=== PATIENT | female | born 1995 | race Caucasian/White ===

== ENCOUNTER 2020-03-25 15:28 | Inpatient (IN) | payer OTHER, SELFPAY ==
[~2020-03-25] VITALS: Ht 152.4 cm; Wt 38.6 kg
[2020-03-25] VITALS (7 sets, daily range): BP systolic 89–114
--- NOTE | 2020-03-25 15:28 | NUR ---
BROUGHT IN BY [facility], PLACED IN BED #1 AND TRIAGED. REPORT GIVEN TO ADRIANA
--- NOTE | 2020-03-25 15:55 | NUR ---
CONNECT PT TO VENT AT THIS TIME VIA SETTINGS PRVC 16. VT 400, PEEP 6, 25%FIO2 PROVIDED BY TRANSPORT TEAM.
[2020-03-25] MEDS ORDERED: VANCOMYCIN HCL 1,000 MG in NS 250 ML IV ONE (16:00)
[2020-03-25] MEDS ORDERED: cefTRIAXone 1 GM in D5W 50 ML IV ONE (16:00)
[2020-03-25] MEDS ORDERED: NACL 0.9% 1,000 ML IV ONE (16:15)
--- NOTE | 2020-03-25 16:20 | NUR ---
SPUTUM COLLECTION DONE BY Mariya AND SENT TO LAB
--- NOTE | 2020-03-25 16:35 | NUR ---
IVF INITIATED AT 75 ML PER HR THRU PICC PORT IN RIGHT UPPER ARM. VENT ALARMING. ENCOURAGED PT TO BREATHE AND PT OPENS HER EYES TO COMMAND.
[2020-03-25] MEDS ORDERED: SODIUM CL 3% FOR INHALATION 15 ML VIAL.NEB INH ONE (16:45)
--- NOTE | 2020-03-25 16:45 | NUR ---
ULTRA SOUND OF THE RIGHT BREAST IN PROGRESS.
[2020-03-25 17:12] LABS: HEMATOCRIT 37.8 % (36-48); HEMOGLOBIN 12.5 g/dL (12.0-16.0); MEAN CORPUSCULAR HEMOGLOBIN 31 pg (27-31); MEAN CORPUSCULAR HGB CONC 33 % (32-36); MEAN CORPUSCULAR VOLUME 94 fL (79.0-98.0); PLATELET COUNT (AUTO) 288 K/uL (130-430); RED BLOOD CELL COUNT(AUTO) 4.02 MIL/uL (4.2-6.2); RED CELL DISTRIBUTION WIDTH 14.5 % (9.0-15.0); WHITE BLOOD COUNT (AUTO) 25.1 K/uL (4.8-10.8)
[2020-03-25 17:33] LABS: CALCIUM 8.9 mg/dL (8.4-11.0); CREATININE 1.19 mg/dL (0.55-1.30); POTASSIUM 3.6 mmol/L (3.5-5.1)
[2020-03-25 17:39] LABS: ALBUMIN 2.7 g/dL (3.4-4.8); TOTAL BILIRUBIN 1.4 mg/dL (0.0-1.0)
--- NOTE | 2020-03-25 18:00 | NUR ---
CALLED R.T. FOR ASSISTANCE, PATIENT TO BE TRANSPORTED TO CT SCAN DEPT, PT TRACHED TO VENTILATOR.
[2020-03-25 18:12] LABS: ATYPICAL LYMPHOCYTES % 0 % (0-0); BAND % (MANUAL) 10 % (0-6); BASOPHILS % (MANUAL) 0 % (0-2); EOSINOPHILS % (MANUAL) 0 % (0-7); LYMPHOCYTES % (MANUAL) 6 % (20-46); MONOCYTES % (MANUAL) 4 % (0-11)
[2020-03-25] MEDS ORDERED: NOREPINEPHRINE BITARTRATE 32 MG in NS 218 ML IV PRN (18:15)
[2020-03-25] MEDS ORDERED: NOREPINEPHRINE BITARTRATE 4 MG in NS 246 ML IV ONE ×2 (19:00)
[2020-03-25] MEDS ORDERED: HYDROCORTISONE SOD SUCC 100 MG/2 ML VIAL IVP ONE (19:00)
--- NOTE | 2020-03-25 19:15 | NUR ---
Received report from MELO Berger.
--- NOTE | 2020-03-25 19:26 | NUR ---
Swabs Covid-19 and MRSA and send to lab.
--- NOTE | 2020-03-25 20:03 | NUR ---
BP 98/58- Hold Levophed IV
[2020-03-25] MEDS ORDERED: ALBUTEROL SULFATE 0.083% 2.5 MG/3 ML VIAL.NEB INH PRN (20:15)
[2020-03-25] MEDS ORDERED: NACL 0.9% 1,500 ML IV ONE (20:15)
[2020-03-25] MEDS: PIPERACILLIN/TAZO 3.375/DEX-IS 50 ML IV SCH ×2 (20:15→23:00)
[2020-03-25] MEDS ORDERED: IPRATROPIUM BROM 0.5 MG/2.5 ML VIAL.NEB (ATROVENT) INH PRN (20:15)
--- NOTE | 2020-03-25 20:20 | NUR ---
Dr. Andrzej bernstein for patient's needs. Addendum: 03/25/20 at 2230 by Zaynab Inman RN wrong time
[2020-03-25] MEDS ORDERED: VANCOMYCIN HCL 500 MG in NS 100 ML IV ONE (20:30)
--- NOTE | 2020-03-25 20:38 | NUR ---
Patient had redness over facial , hot, Dr. Lockhart notified.
--- NOTE | 2020-03-25 20:40 | NUR ---
After finished IV Vancomycin, patient had hot, redness, sweat . Possible allergy. order to stop Vancomycin medication.
[2020-03-25] MEDS ORDERED: DIPHENHYDRAMINE INJ 50 MG/ML VIAL ONE (20:44)
--- NOTE | 2020-03-25 20:49 | NUR ---
Given Bendyl 25 mg IV stat as Verbal order by Dr. Lockhart.
[2020-03-25] MEDS ORDERED: DIPHENHYDRAMINE INJ 50 MG/ML VIAL IVP ONE (21:00)
[2020-03-25] MEDS ORDERED: HYDROCORTISONE SOD SUCC 100 MG/2 ML VIAL ONE (21:04)
--- NOTE | 2020-03-25 21:21 | NUR ---
Patient will be admitted to care of Dr. Donnelly. Admitted to unit ICU . Will go to room ICU 4. Belongings list completed. Complete and up to date summary report printed. SBAR report to be given at bedside with opportunity for questions.
[2020-03-25] MEDS ORDERED: MULT9LIQ9 GT (21:28)
[2020-03-25] MEDS ORDERED: HYDR-4274 GT (21:28)
[2020-03-25] MEDS ORDERED: PRO40 GT (21:29)
[2020-03-25] MEDS ORDERED: CHLO473M5 PO (21:30)
[2020-03-25] MEDS ORDERED: POLY17PO4 PO (21:32)
[2020-03-25] MEDS ORDERED: SENN8.6T19 GT (21:33)
[2020-03-25] MEDS ORDERED: AMIN30LI2 GT (21:33)
[2020-03-25] MEDS ORDERED: ACET-2634 GT (21:34)
[2020-03-25] MEDS ORDERED: ACET325T GT (21:35)
[2020-03-25] MEDS ORDERED: ONDA4TAB5 GT (21:36)
--- NOTE | 2020-03-25 21:38 | NUR ---
Admission Received patient from ER. Patient is on the ICU monitor. Patient tolerated transfer well. Will continue to monitor.
--- NOTE | 2020-03-25 21:40 | NUR ---
Received report from ER nurse MAY using SBAR approach.
--- NOTE | 2020-03-25 21:41 | NUR ---
Medication reconciliation completed with information provided by [facility]. Any prior medication reconciliation on file was reviewed and corrected.
--- NOTE | 2020-03-25 22:08 | NUR ---
PAGED FOR ORDERS DIALED: [phone] SPOKE TO: GABBY
--- NOTE | 2020-03-25 22:20 | NUR ---
Dr. Donnelly pageashvin for patient's needs.
[2020-03-25] MEDS ORDERED: PIPERACILLIN/TAZOBACTAM 3.375 GM/VIAL (ZOSYN) IV ONE (22:34)
--- NOTE | 2020-03-25 22:34 | NUR ---
PAGED FOR ORDERS (FOLLOW UP) DIALED: [phone] SPOKE TO: DR. AUSTIN
[2020-03-25] MEDS ORDERED: NOREPINEPHRINE BITARTRATE 4 MG in NS 246 ML IV PRN (22:45)
[2020-03-25] MEDS ORDERED: ACETAMINOPHEN 325 MG TABLET PO PRN (22:45)
[2020-03-25] MEDS ORDERED: NOREPINEPHRINE BITARTRATE 4 MG in D5W 246 ML IV PRN (23:00)
[2020-03-25] MEDS: D5NS 1,000 ML IV SCH (23:00)
--- NOTE | 2020-03-25 23:00 | NUR ---
Dr. Donnelly replied. New orders received.
[2020-03-25] MEDS: HYDROCORTISONE SOD SUCC 100 MG/2 ML VIAL IVP SCH (23:02)
[2020-03-26] VITALS (35 sets, daily range): BP systolic 91–126
[2020-03-26] MEDS ORDERED: ACETAMINOPHEN 650 MG/20.3 ML UDC ONE
--- NOTE | 2020-03-26 | NUR ---
CHG Cleaned patient with CHG wipes. Changed all linens and gown. Oral Care done twice on patient. Suctioned patient and medium amount of secretions came out. Patient tolerated well.
--- NOTE | 2020-03-26 00:20 | NUR ---
DOTSON CATH: # 16 FR Dotson catheter with cc bulb inserted with use of sterile technique. Bulb inflated with cc sterile water. Immediate return of urine noted. Bedside drainage bag placed below level of bladder. Urine sample collected and sent to lab. Pt tolerated procedure.
--- NOTE | 2020-03-26 01:00 | NUR ---
Influenza testing done on patient. Patient tolerated well.
--- NOTE | 2020-03-26 02:00 | NUR ---
Covid testing done on patient. Patient tolerated well.
[2020-03-26] MEDS: D5NS 1,000 ML IV SCH ×4 (03:50→22:55)
--- NOTE | 2020-03-26 05:00 | NUR ---
Repositioned patient and performed oral care twice. Suctioned patient and thin secretions came out. Patient tolerated well.
[2020-03-26] MEDS: PIPERACILLIN/TAZO 3.375/DEX-IS 50 ML IV SCH ×4 (05:47→23:12)
[2020-03-26] MEDS: HYDROCORTISONE SOD SUCC 100 MG/2 ML VIAL IVP SCH ×4 (05:47→23:13)
--- NOTE | 2020-03-26 07:07 | NUR ---
Opening Note Received report from NOC nurse using SBAR approach.
[2020-03-26] MEDS: IPRATROPIUM BROM 0.5 MG/2.5 ML VIAL.NEB (ATROVENT) INH SCH ×5 (07:12→23:00)
[2020-03-26] MEDS: ALBUTEROL SULFATE 0.083% 2.5 MG/3 ML VIAL.NEB INH SCH ×5 (07:12→23:00)
--- NOTE | 2020-03-26 07:17 | NUR ---
CONSULT ID CONSULTING MD: DR. RIVERS SPOKE TO: ERUM DIALED: [phone] ORDERED BY: DR. AUSTIN
--- NOTE | 2020-03-26 07:26 | NUR ---
MD ROUNDS: DR. TAY AT BEDSIDE COMPLETING ROUNDS, NEW ORDERS RC'VD AND TRANSCRIBED
--- NOTE | 2020-03-26 07:49 | NUR ---
MD RIVERS: DR. RIVERS RETURNED CONSULT PAGE, NEW ORDER RC'VD AND TRANSCRIBED FOR ABX THERAPY, PER DR. RIVERS HE WILL ROUND ON PATIENT THIS AFTERNOON.
--- NOTE | 2020-03-26 07:52 | NUR ---
Nutrition Update Ojao scale 10 noted. Pt admitted for Septic Shock Diet: TF Jevity 1.2 @ 70 ml/hr x 20 hrs; FWF 180 ml q4h BMI: 16.6 kg/m2 RD to follow per nutrition care standards.
[2020-03-26] MEDS: HEPARIN SODIUM,PORCINE 5,000 UNITS/ML VIAL SUBCUT SCH ×2 (08:18→20:57)
--- NOTE | 2020-03-26 08:56 | NUR ---
RIGHT BREAST: REDNESS, SWELLING NOTED TO RIGHT BREAST, MD TAY NOTIFIED, ULTRASOUND STAT ORDERED, ORDER PLACED AND TRANSCRIBED
[2020-03-26 09:49] LABS: CLARITY/URINE CLEAR (CLEAR); COLOR,URINE YELLOW (YELLOW)
[2020-03-26 09:50] LABS: BILIRUBIN,URINE NEGATIVE (NEGATIVE); BLOOD, URINE 1+ (NEGATIVE); GLUCOSE,URINE NEGATIVE (NEGATIVE); KETONES,URINE NEGATIVE (NEGATIVE); LEUKOCYTE ESTERASE ,URINE TRACE (NEGATIVE); PROTEIN URINE NEGATIVE (NEGATIVE)
--- NOTE | 2020-03-26 09:50 | NUR ---
MD TAY: ORDER RC'VD FOR UA, UA COLLECTED AND SENT TO LAB FOR ANALYSIS
[2020-03-26 09:51] LABS: NITRITE, URINE NEGATIVE (NEGATIVE)
--- NOTE | 2020-03-26 09:51 | NUR ---
MRSA: MRSA COLLECTED AND SENT TO LAB
[2020-03-26 09:52] LABS: BACTERIA,URINE None Seen /HPF (None Seen)
[2020-03-26] MEDS: LINEZOLID 300 ML IV SCH ×2 (10:07→21:07)
--- NOTE | 2020-03-26 10:15 | NUR ---
DR. RIVERS: DR. RIVERS AT BEDSIDE PREFORMING ROUNDS
[2020-03-26] MEDS: ACETAMINOPHEN 650 MG/20.3 ML UDC GT PRN ×2 (10:47→17:02)
--- NOTE | 2020-03-26 10:47 | NUR ---
PAIN: PRN TYLENOL GIVEN FOR HR 125, R28, FACIAL GRIMACING
--- NOTE | 2020-03-26 11:09 | NUR ---
PAGED: DR. AUSTIN PAGED R/T RECOMMENDATION FROM DR. RIVERS TO HAVE RIGHT BREAST CONSULTED ON BY SURGEON. PENDING RETURN CALL.
[2020-03-26 11:15] LABS: HEMATOCRIT 31.7 % (36-48); HEMOGLOBIN 10.3 g/dL (12.0-16.0); MEAN CORPUSCULAR HEMOGLOBIN 31 pg (27-31); MEAN CORPUSCULAR HGB CONC 33 % (32-36); MEAN CORPUSCULAR VOLUME 95 fL (79.0-98.0); PLATELET COUNT (AUTO) 227 K/uL (130-430); RED BLOOD CELL COUNT(AUTO) 3.32 MIL/uL (4.2-6.2)
--- NOTE | 2020-03-26 11:20 | NUR ---
DR. AUSTIN SPOKE WITH DR. AUSTIN IN PERSON, NEW ORDERS RC'VD AND TRANSCRIBED
--- NOTE | 2020-03-26 11:36 | NUR ---
DR. HILLMAN SPOKE WITH DR. HILLMAN VIA PHONE, HE WILL CONSULT ON PATIENT PER DR. AUSTIN ORDER. DR. HILLMAN STATED TO PLACE PATIENT NPO
--- NOTE | 2020-03-26 12:30 | NUR ---
RT NOTES Transported pt to and from ct. pt remained on vent. T.t remains secure.
--- NOTE | 2020-03-26 12:31 | NUR ---
CT SCAN: Transported pt to and from ct. pt remained on vent with RT at side.
[2020-03-26 12:45] LABS: BAND % (MANUAL) 15 % (0-6); BASOPHILS % (MANUAL) 0 % (0-2); EOSINOPHILS % (MANUAL) 0 % (0-7); LYMPHOCYTES % (MANUAL) 4 % (20-46); MONOCYTES % (MANUAL) 1 % (0-11)
--- NOTE | 2020-03-26 12:57 | NUR ---
FAMILY: FAMILY UPDATE GIVEN TO PARENTS OVER PHONE, ALL QUESTIONS ANSWERED AT THIS TIME, WILL PROVIDE UPDATES PRN
--- NOTE | 2020-03-26 14:35 | NUR ---
RN ROUNDS: ORAL CARE PROVIDED, REPOSITIONED FOR COMFORT, PATIENT TOLERATED WELL
--- NOTE | 2020-03-26 17:18 | NUR ---
PAIN: PAIN: PRN TYLENOL GIVEN FOR HR 136, FACIAL GRIMACING, AND MOANING
--- NOTE | 2020-03-26 18:18 | NUR ---
PCR RESULTS: PCR RESULTS CAME BACK NEGATIVE, PT REMOVED OFF ISOLATION. CHARGE MADE AWARE.
--- NOTE | 2020-03-26 18:40 | NUR ---
FAMILY: FAMILY UPDATE GIVEN TO PARENTS OVER PHONE, ALL QUESTIONS ANSWERED AT THIS TIME, WILL PROVIDE UPDATES PRN
--- NOTE | 2020-03-26 18:50 | NUR ---
CLOSING NOTES: ALL CARES PROVIDED, NEEDS MET ALL SAFETY PRECAUTIONS IN PLACE, PATIENT CALM AND COMFORTABLE. WILL ENDORSE CARES TO NOC NURSE.
--- NOTE | 2020-03-26 19:25 | NUR ---
Opening Note Received report from AM nurse using SBAR approach.
--- NOTE | 2020-03-26 22:17 | NUR ---
DR. SAADIA ANDERSON AT BEDSIDE (FOR DR. HILLMAN). PER MD PT WILL BE TAKEN TO OR IN THE AM FOR DRAINAGE AND POSSIBLE BIOPSY OF BREAST MASS. MD TO CALL FAMILY IN AM TO OBTAIN CONSENT. KEEP PT NPO. WILL CARRY OUT ORDERED. Addendum: 03/27/20 at 0428 by Anjelica Nuñez RN JULISSA ATKINSON
--- NOTE | 2020-03-26 23:00 | NUR ---
Called patient's family and updated family on patient's status.
[2020-03-27] VITALS (38 sets, daily range): BP systolic 99–147
--- NOTE | 2020-03-27 | NUR ---
CHG Cleaned patient to with CHG wipes. Patient had a bowel movement. Cleaned patient with louie wipes and changed all linens and gown. Patient tolerated well.
[2020-03-27] MEDS: ALBUTEROL SULFATE 0.083% 2.5 MG/3 ML VIAL.NEB INH SCH ×6 (03:00→23:30)
[2020-03-27] MEDS: IPRATROPIUM BROM 0.5 MG/2.5 ML VIAL.NEB (ATROVENT) INH SCH ×6 (03:00→23:30)
[2020-03-27] MEDS: D5NS 1,000 ML IV SCH ×2 (04:50→12:15)
[2020-03-27] MEDS: PIPERACILLIN/TAZO 3.375/DEX-IS 50 ML IV SCH ×3 (05:13→18:21)
[2020-03-27] MEDS: HYDROCORTISONE SOD SUCC 100 MG/2 ML VIAL IVP SCH ×3 (05:13→18:21)
[2020-03-27 05:54] LABS: BASOPHILS % (AUTO) 0.1 % (0.0-2.0); HEMATOCRIT 29.2 % (36-48); HEMOGLOBIN 9.6 g/dL (12.0-16.0); LYMPHOCYTES # (AUTO) 1.4 K/uL (1.0-5.5); LYMPHOCYTES % (AUTO) 7.3 % (20.5-51.5); MEAN CORPUSCULAR HEMOGLOBIN 31 pg (27-31); MEAN CORPUSCULAR HGB CONC 33 % (32-36); MEAN CORPUSCULAR VOLUME 95 fL (79.0-98.0); MONOCYTES # (AUTO) 0.7 K/uL (0.0-1.0); MONOCYTES % (AUTO) 3.3 % (1.7-9.3); NEUTROPHILS # (AUTO) 17.7 K/uL (1.8-7.7); NEUTROPHILS % (AUTO) 89.3 % (40.0-70.0); PLATELET COUNT (AUTO) 222 K/uL (130-430); RED BLOOD CELL COUNT(AUTO) 3.08 MIL/uL (4.2-6.2); RED CELL DISTRIBUTION WIDTH 14.4 % (9.0-15.0); WHITE BLOOD COUNT (AUTO) 19.9 K/uL (4.8-10.8)
--- NOTE | 2020-03-27 06:00 | NUR ---
Patient is prepped for surgery. Cleaned patient with CHG wipes. Awaiting MD to speak to family to obtain consent.
[2020-03-27 06:42] LABS: CALCIUM 8.2 mg/dL (8.4-11.0); CREATININE 0.77 mg/dL (0.55-1.30); TOTAL BILIRUBIN 0.3 mg/dL (0.0-1.0)
[2020-03-27] MEDS ORDERED: POLYMYXIN 500,000/BACIT.10,000 UNITS in NS IRR 1 L IR ONE (06:43)
[2020-03-27 06:46] LABS: POTASSIUM 2.6 mmol/L (3.5-5.1)
--- NOTE | 2020-03-27 07:14 | NUR ---
ATTENDING MD DR AUSTIN WAS CALLED, RE: CRITICAL K LEVELL OF 2.6. SPOKE TO ERUM.
[2020-03-27] MEDS ORDERED: KCL 20 mEq in 100 mL (PREMIX) 100 ML IV ONE (07:15)
[2020-03-27] MEDS ORDERED: KCL 40 mEq in 100 mL (PREMIX) 100 ML IV ONE ×3 (07:15→07:30)
--- NOTE | 2020-03-27 08:40 | NUR ---
Opening Notes Patient received in bed, with no signs of distress noted. Patient on pvc monitor with NSR. Patient has a tracheostomy connected to vent with settings pressure control 16, FiO2 25%, tidal volume 400, PEEP 6 breathing evenly and unlabored. Patient has a JUJU PICC D5NS at 150 ml/hr. Patient has a g-tube clamped. Patient has a raphael catheter draining urine. Safety precautions enforced.
[2020-03-27] MEDS: HEPARIN SODIUM,PORCINE 5,000 UNITS/ML VIAL SUBCUT SCH ×2 (09:00→21:24)
[2020-03-27] MEDS: LINEZOLID 300 ML IV SCH ×2 (09:33→21:34)
--- NOTE | 2020-03-27 10:45 | NUR ---
MD Rounds Dr. Paredes at bedside for examination. No new orders received.
--- NOTE | 2020-03-27 12:00 | NUR ---
RN Rounds Patient resting in bed, no signs of distress noted. Patient cleaned, turned and repositioned. Safety precautions enforced.
--- NOTE | 2020-03-27 13:57 | NUR ---
Wound Evaluation: Wound Consult ordered for Low Joao Score. Patient evaluated for a low Joao score of a 10. Patient was awake, alert, non-verbal, responds to tactile cues, on tracheostomy to ventilator, and received in a [facility] Bed with an IsoFlex CARL mattress with low air loss therapy initiated. Patient needs to be turned in bed. Skin is intact. Patient is scheduled for an I&D of a Right Breast mass today. Recommend: Reposition patient side to side only every 2 hours with pillow support. Elevate, off-load and float bilateral heels with one pillow lengthwise under each extremity at all times. Offload pressure areas with pillows for pressure re-distribution. Perform skin care and monitor skin integrity Q shift. Use moisture barrier cream on moisture susceptible areas QID and PRN for soiling. Maintain patient on a low air-loss mattress.
--- NOTE | 2020-03-27 14:15 | NUR ---
Reported potassium level Reported potassium level to Dr. Johnson, anesthesiologist. Per Dr. Johnson, she will inform Dr. Norris regarding patient update. No set time for procedure at this time.
--- NOTE | 2020-03-27 14:41 | NUR ---
Dietitian Recommendations *Recommend continue NPO. *If/when medically feasible to resume TF, recommend: TF Glucerna 1.2 at 70 ml/hr (goal rate) x 20 hrs via PEG. FWF per MD Provides: 1680 kcal, 84 g protein, 1127 ml free H2O. Meets: 108% of upper end estimated kcal needs and 108% of upper end estimated protein needs. Please see Nutrition Assessment for details. EP,RD
--- NOTE | 2020-03-27 16:00 | NUR ---
RN Rounds Patient in no signs of distress at this time. Safety precautions enforced.
--- NOTE | 2020-03-27 17:35 | NUR ---
Surgery Patient transported to OR with recovery team and RT via gurney. Patient on portable cancer registry coordinator. Patient in no signs of distress. Report given to INSURANCE RISK SURVEYOR.
[2020-03-27] MEDS ORDERED: fentaNYL CITRATE/PF 100 MCG/2 ML AMP IVP PRN ×2 (18:00)
--- NOTE | 2020-03-27 18:15 | NUR ---
Post procedure Patient returned from OR post I and D of right breast to ICU bed 4. Patient accompanied by RT, recovery RNs, and Dr. Norris. Report received. Patient connected to laboratory monitor with NSR. VIANCA.
--- NOTE | 2020-03-27 18:15 | NUR ---
Patient arousable to tactile stimuli. VSS. No signs of distress noted.
[2020-03-27] MEDS ORDERED: BUPIVACAINE /PF 0.5% 30 ML VIAL ONE (18:20)
[2020-03-27] MEDS ORDERED: D5NS 1,000 ML IV.SOLN IV ONE (18:20)
[2020-03-27] MEDS ORDERED: SEVOFLURANE 15 MIN GAS INH ONE (18:20)
[2020-03-27] MEDS ORDERED: NS IRRIG SOLN 1000 ML IR ONE (18:20)
[2020-03-27] MEDS ORDERED: BUPIVACAINE /PF 0.25% 30 ML VIAL INJ ONE (18:20)
[2020-03-27] MEDS ORDERED: ROCURONIUM BROMIDE 10 MG/ML (ZEMURON) ONE (18:20)
--- NOTE | 2020-03-27 18:20 | NUR ---
Patient arousable to tactile stimuli. VSS. No signs of distress noted.
--- NOTE | 2020-03-27 18:25 | NUR ---
Patient arousable to tactile stimuli. VSS. No signs of distress noted.
[2020-03-27] MEDS ORDERED: HYDROcodone/ACETAMIN 5-325 MG TAB (NORCO/ VICODIN) PO PRN (18:30)
--- NOTE | 2020-03-27 18:30 | NUR ---
Patient arousable to tactile stimuli. VSS. No signs of distress noted.
--- NOTE | 2020-03-27 18:35 | NUR ---
Patient arousable to tactile stimuli. VSS. No signs of distress noted.
--- NOTE | 2020-03-27 18:40 | NUR ---
Patient arousable to tactile stimuli. VSS. No signs of distress noted.
--- NOTE | 2020-03-27 18:45 | NUR ---
Patient arousable to tactile stimuli. VSS. No signs of distress noted.
--- NOTE | 2020-03-27 19:21 | NUR ---
Closing Notes Patient endorsed to lieutenant shift supervisor RN using SBAR format. Patient in no signs of distress. Safety precautions enforced.
--- NOTE | 2020-03-27 20:00 | NUR ---
PT REASSESSED AND NO CHGS RT BRST DRSG CDI FROM JANEE D TODAY DOES NOT FOLLOW COMMANDS GARBLED NOISES CONTRACTED
[2020-03-27] MEDS: HYDROmorphone 2 MG/ML VIAL IVP PRN (21:28)
--- NOTE | 2020-03-27 23:00 | NUR ---
REPOSITIONED ORAL CARE
[2020-03-28] VITALS (12 sets, daily range): BP systolic 119–142
--- NOTE | 2020-03-28 00:30 | NUR ---
REPOSITIONED LINEN CHG
[2020-03-28] MEDS: HYDROCORTISONE SOD SUCC 100 MG/2 ML VIAL IVP SCH ×5 (00:34→23:59)
[2020-03-28] MEDS: PIPERACILLIN/TAZO 3.375/DEX-IS 50 ML IV SCH ×5 (00:34→23:59)
[2020-03-28] MEDS: D5NS 1,000 ML IV SCH ×5 (01:00→23:59)
--- NOTE | 2020-03-28 01:12 | NUR ---
DR RIVERS TO CHECK PT AND GIVEN UPDATE ON PT
[2020-03-28] MEDS: IPRATROPIUM BROM 0.5 MG/2.5 ML VIAL.NEB (ATROVENT) INH SCH ×6 (03:00→23:36)
[2020-03-28] MEDS: ALBUTEROL SULFATE 0.083% 2.5 MG/3 ML VIAL.NEB INH SCH ×6 (03:30→23:35)
--- NOTE | 2020-03-28 04:30 | NUR ---
PT TRANSFERRED VIA BED TO [facility] WITH 2 RNS RT WITH VENT TO TRACH IV JUJU PICC LINE PATENT MEDS TO FLOOR RN MATT AND PT REPORT DRSG TO RT BRST CDI PT STABLE DOTSON TO DRAIN YELLOW URINE NO SKIN BREAKDOWN NO EDEMA
--- NOTE | 2020-03-28 04:45 | NUR ---
Opening notes/Received from ICU Received report from MELO Boyd. Pt's eyes open, non-verbal. Trache dependent. Mechanical vent setting AC16, TV 400 PEEP 6 FiO2 25% on cont pulse ox satting at 96-98%. PICC line JUJU 2 lumens good blood return. GT clamped at this time. Woodruff catheter emptied 500ml cloudy yellow urine. Pt contracted x4 extremities. Call light within reach. HOB maintained elevated. Bed low, locked, siderails up x3. To monitor.
[2020-03-28] MEDS: HYDROmorphone 2 MG/ML VIAL IVP PRN (05:45)
--- NOTE | 2020-03-28 06:30 | NUR ---
Closing notes Pt's eyes open, non-verbal. Trache dependent. Mechanical vent setting AC16, TV 400 PEEP 6 FiO2 25% on cont pulse ox satting at 96-98%. PICC line JUJU 2 lumens good blood return, antibiotic administered at ordered rate. GT placement checked, no residual noted. Glucerna 1.2 started at 70cc/hr and 180ml water flush. Woodruff catheter draining to gravity. Pt contracted x4 extremities. Call light within reach. HOB maintained elevated. Bed low, locked, siderails up x3. To endorse to AM nurse.
--- NOTE | 2020-03-28 07:32 | NUR ---
OPENING NOTE Patient resting in the bed. No acute distress. Trach intact to vent. HOB elevated. GT intact, patent. On Glucerna 1.2 at 70ml/hr. Skin warm and dry to touch. PICC line intact to JUJU, no redness, no swelling, no drainage. On D5 NS at 150ml/hr, infusing well. F/C intact, drain gravity. Safety measure maintained. Call light within reached. Bed locked in low position, side rails up, bed alarm on. Will continue to monitor.
--- NOTE | 2020-03-28 09:00 | NUR ---
SEEN AND EXAMINED BY ISACC FIELDS.
[2020-03-28] MEDS: LINEZOLID 300 ML IV SCH ×2 (09:39→21:20)
[2020-03-28] MEDS: HEPARIN SODIUM,PORCINE 5,000 UNITS/ML VIAL SUBCUT SCH ×2 (09:41→21:25)
[2020-03-28 10:06] LABS: BASOPHILS % (AUTO) 0.1 % (0.0-2.0); HEMATOCRIT 28.7 % (36-48); HEMOGLOBIN 9.5 g/dL (12.0-16.0); LYMPHOCYTES # (AUTO) 1.6 K/uL (1.0-5.5); MEAN CORPUSCULAR HEMOGLOBIN 31 pg (27-31); MEAN CORPUSCULAR HGB CONC 33 % (32-36); MEAN CORPUSCULAR VOLUME 94 fL (79.0-98.0); MONOCYTES # (AUTO) 0.4 K/uL (0.0-1.0); MONOCYTES % (AUTO) 3.2 % (1.7-9.3); NEUTROPHILS # (AUTO) 10.1 K/uL (1.8-7.7); NEUTROPHILS % (AUTO) 83.7 % (40.0-70.0); PLATELET COUNT (AUTO) 234 K/uL (130-430); RED BLOOD CELL COUNT(AUTO) 3.06 MIL/uL (4.2-6.2); RED CELL DISTRIBUTION WIDTH 14.4 % (9.0-15.0); WHITE BLOOD COUNT (AUTO) 12.1 K/uL (4.8-10.8)
--- NOTE | 2020-03-28 10:28 | NUR ---
SEEN AND EXAMINED BY ALLISON KINNEY.
--- NOTE | 2020-03-28 10:28 | NUR ---
SEEN AND EXAMINED BY ALLISON KINNEY.
--- NOTE | 2020-03-28 12:45 | NUR ---
ROUND Patient resting in the bed. No acute distress. HOB elevated. Trach intact to vent. Continue on tube feeding, tolerated well. PICC line intact to JUJU, IVF infusing well. F/C intact, drain gravity. Safety measure maintained. Call light within reached. Bed locked in low position, side rails up, bed alarm on. Continue to monitor.
--- NOTE | 2020-03-28 15:22 | NUR ---
SEEN AND EXAMINED BY APRYL KENYON.
--- NOTE | 2020-03-28 17:05 | NUR ---
ROUND Patient resting in the bed. No acute distress. Trach intact to vent.HOB elevated. Continue on tube feeding, tolerated well. PICC line intact to JUJU, IVF infusing well. F/C intact, drain gravity. Safety measure maintained. Call light within reached. Bed locked in low position, side rails up, bed alarm on. Continue to monitor.
--- NOTE | 2020-03-28 18:56 | NUR ---
CLOSING NOTE Patient resting in the bed. No acute distress. Trach intact to vent. HOB elevated. GT intact, patent. On Glucerna 1.2 at 70ml/hr. Skin warm and dry to touch. PICC line intact to JUJU, no redness, no swelling, no drainage. On D5 NS at 150ml/hr, infusing well. F/C intact, drain gravity. All needs met. Safety measure maintained. Call light within reached. Bed locked in low position, side rails up, bed alarm on. Will endorse to night nurse.
--- NOTE | 2020-03-28 19:15 | NUR ---
OPENING NOTE REPORT RECEIVED FROM DAYSIAFT NURSE. PATIENT RECEIVED LYING IN BED, EYES OPEN, NO S/S OF ACUTE DISTRESS NOTED. BREATHING EVEN AND UNLABORED. HOB RAISED. TRACH TO VENT ATTACHED AND OPERATING. IVF AND TUBE FEEDING INFUSING WELL. DOTSON ATTACHED, SECURED, AND DRAINING BY GRAVITY. BED IS LOCKED AND AT LOWEST POSITION. BED ALARM ON. WILL CONTINUE TO MONITOR.
--- NOTE | 2020-03-28 21:00 | NUR ---
[facility] SCHEDULED MEDICATIONS ADMINISTERED AT THIS TIME. NO SIGNS OF DISCOMFORT. CHEST RISE AND FALL EVEN BILATERALLY. ALL NEEDS MET. BED ALARM ON. WILL CONTINUE TO MONITOR.
--- NOTE | 2020-03-28 23:00 | NUR ---
ROUNDS PATIENT IN BED, NO S/S OF ACUTE DISTRESS NOTED. BREATHING EVEN AND UNLABORED. HOB RAISED, TRACH TO VENT ATTACHED AND OPERATING. IVF AND TUBE FEEDING INFUSING WELL. DOTSON ATTACHED, SECURED, AND DRAINING BY GRAVITY. ALL NEEDS MET. BED ALARM ON. WILL CONTINUE TO MONITOR.
[2020-03-29 00:09] VITALS: BP_SYST 96
[2020-03-29 00:11] VITALS: BP_SYST 140
--- NOTE | 2020-03-29 01:00 | NUR ---
ROUNDS NO SIGNS OF DISCOMFORT NOTED. CHEST RISE AND FALL EVEN BILATERALLY. ALL NEEDS MET. BED ALARM ON. WILL CONTINUE TO MONITOR.
[2020-03-29] MEDS: IPRATROPIUM BROM 0.5 MG/2.5 ML VIAL.NEB (ATROVENT) INH SCH ×6 (03:16→23:20)
[2020-03-29] MEDS: ALBUTEROL SULFATE 0.083% 2.5 MG/3 ML VIAL.NEB INH SCH ×6 (03:16→23:19)
[2020-03-29] MEDS: D5NS 1,000 ML IV SCH ×3 (04:15→16:15)
--- NOTE | 2020-03-29 04:30 | NUR ---
INCONTINENT CARE PATIENT CLEANED AT THIS TIME BY CROP ADJUSTER AND RN. PATIENT TOLERATED WELL. ALL NEEDS MET. BED ALARM ON. WILL CONTINUE TO MONITOR.
[2020-03-29] MEDS: HYDROCORTISONE SOD SUCC 100 MG/2 ML VIAL IVP SCH ×3 (05:43→17:40)
[2020-03-29] MEDS: PIPERACILLIN/TAZO 3.375/DEX-IS 50 ML IV SCH ×4 (05:43→23:53)
[2020-03-29 06:21] LABS: BASOPHILS % (AUTO) 0.1 % (0.0-2.0); EOSINOPHILS % (AUTO) 0.1 % (0.0-4.0); HEMATOCRIT 28.4 % (36-48); HEMOGLOBIN 9.6 g/dL (12.0-16.0); LYMPHOCYTES # (AUTO) 1.5 K/uL (1.0-5.5); LYMPHOCYTES % (AUTO) 22.2 % (20.5-51.5); MEAN CORPUSCULAR HEMOGLOBIN 31 pg (27-31); MEAN CORPUSCULAR HGB CONC 34 % (32-36); MEAN CORPUSCULAR VOLUME 93 fL (79.0-98.0); MONOCYTES # (AUTO) 0.5 K/uL (0.0-1.0); MONOCYTES % (AUTO) 7.7 % (1.7-9.3); NEUTROPHILS # (AUTO) 4.9 K/uL (1.8-7.7); NEUTROPHILS % (AUTO) 69.9 % (40.0-70.0); PLATELET COUNT (AUTO) 223 K/uL (130-430); RED BLOOD CELL COUNT(AUTO) 3.05 MIL/uL (4.2-6.2); RED CELL DISTRIBUTION WIDTH 14.3 % (9.0-15.0)
--- NOTE | 2020-03-29 06:44 | NUR ---
CLOSING NOTE PATIENT IN BED, HOB RAISED. NO S/S OF ACUTE DISTRESS NOTED. BREATHING IS EVEN AND UNLABORED. VENT TO TRACH ATTACHED AND OPERATING. IVF AND TUBE FEEDING INFUSING WELL. DOTSON ATTACHED, SECURED, AND DRAINING BY GRAVITY. ALL NEEDS MET. BED ALARM ON. WILL CONTINUE TO MONITOR UNTIL PATIENT CARE IS ENDORSED TO ONCOMING DAYSHIFT NURSE.
[2020-03-29 06:53] LABS: ALBUMIN 2.1 g/dL (3.4-4.8); CALCIUM 7.5 mg/dL (8.4-11.0); CREATININE 0.74 mg/dL (0.55-1.30); TOTAL BILIRUBIN 0.3 mg/dL (0.0-1.0)
[2020-03-29 07:09] LABS: POTASSIUM 1.9 mmol/L (3.5-5.1)
--- NOTE | 2020-03-29 07:10 | NUR ---
ATTENDING MD HEALTH SCIENCE INSTRUCTOR, DR HAYNES WAS CALLED FOR CRITICAL K LEVEL OF 1.9.
[2020-03-29] MEDS ORDERED: POTASSIUM CHLORIDE 40 MEQ in NS 250 ML IV ONE ×2 (07:30→16:15)
--- NOTE | 2020-03-29 07:55 | NUR ---
OPENING NOTE Received pt in bed, no s/s of distress or sob noted. Pt has no facial grimacing noted for pain. Trach intact to vent at prescribed settings. HOB elevated. GT intact, patent, flushes, placement verified, tolerating feedings as ordered. PICC line intact to JUJU, no redness, no swelling, no drainage, dressing clean, dry and intact. F/C intact, drain gravity. Safety measure maintained. Call light within reached. Bed locked in low position, side rails up, bed alarm on. Will continue to monitor pt for any changes. Pt aaox1, non verbal, opens eyes, provided pt with reality orientation.
[2020-03-29] MEDS: LINEZOLID 300 ML IV SCH ×2 (08:17→21:34)
[2020-03-29] MEDS: HEPARIN SODIUM,PORCINE 5,000 UNITS/ML VIAL SUBCUT SCH ×2 (08:22→21:36)
[2020-03-29 08:40] VITALS: BP_SYST 124
--- NOTE | 2020-03-29 10:34 | NUR ---
ROUNDS PT IN BED, NO S/S OF DISTRESS OR SOB NOTED, PT HAS NO FACIAL GRIMACING NOTED FOR PAIN, PT IN STABLE CONDITION. PT RESTING COMFORTABLY, WILL CONTINUE TO MONITOR PT FOR ANY CHANGES.
[2020-03-29 11:27] VITALS: BP_SYST 137
--- NOTE | 2020-03-29 11:30 | NUR ---
DC Barriers: elevated K, pending ID clearance and abx for discharge .
[2020-03-29 15:41] VITALS: BP_SYST 145
[2020-03-29 16:04] LABS: ALBUMIN 2.2 g/dL (3.4-4.8); CALCIUM 7.4 mg/dL (8.4-11.0); CREATININE 0.82 mg/dL (0.55-1.30); TOTAL BILIRUBIN 0.4 mg/dL (0.0-1.0)
--- NOTE | 2020-03-29 16:30 | NUR ---
RT NOTES PT PLACED ON CPAP 5, PS 10, 25%FIO2 AT 1520. MELO CARRION MADE AWARE. PT TOLERATED WELL CPAP WELL FOR THE PAST HR. NOTIFIED DR. TAY. NEW ORDER RECEIVED.
--- NOTE | 2020-03-29 16:51 | NUR ---
MD ROUNDS DR MAGGI QUIROS, AWARE OF PATIENT'S CONDITION, MADE AWARE OF CONTINUES BEEPING OF VENTILATOR AND HOW SHE WAS TRIED ON NEW SETTINGS BY RT AND SHE IS TOLERATING, MD GAVE NEW ORDERS FOR SEROQUEL TO KEEP HER CALM AND NEW ORDERS FOR VENT SETTINGS.
--- NOTE | 2020-03-29 17:22 | NUR ---
MD ROUNDS DR ROXANN QUIROS, AWARE OF PATIENT'S CONDITION, MD MADE AWARE THAT DRESSING HAS NOT BEEN CHANGED DUE TO NO SPECIFIC WOUND CARE ORDER, PER MD TO CHANGE DRESSING DAILY AND PACK WITH 4X4 AND COVER WITH DRESSING.
--- NOTE | 2020-03-29 18:30 | NUR ---
CLOSING NOTE Pt in bed, no s/s of distress or sob noted. Pt has no facial grimacing noted for pain. Trach intact to vent at prescribed settings. HOB elevated. GT intact, patent, flushes, tolerating feedings as ordered. PICC line intact to JUJU, no redness, no swelling, no drainage, dressing clean, dry and intact. F/C intact, drain gravity. Safety measure maintained. Call light within reached. Bed locked in low position, side rails up, bed alarm on. Will endorse care of pt to incoming nurse.
--- NOTE | 2020-03-29 19:15 | NUR ---
OPENING NOTE REPORT RECEIVED FROM DAYSHIFT NURSE. PATIENT RECEIVED LYING IN BED, NON VERBAL, HOB RAISED, NO S/S OF ACUTE DISTRESS NOTED. BREATHING IS EVEN AND UNLABORED. TRACH TO VENT ATTACHED AND OPERATING, PATIENT TOLERATING WELL, SPO2 AT 98 ON TELEMONITOR. IVF AND TUBE FEEDING INFUSING WELL. IV SITE IS PATENT, NO SIGNS OF INFILTRATION OR INFECTION NOTED. DOTSON ATTACHED, SECURED, AND DRAINING BY GRAVITY. BED ALARM ON. BED IS LOCKED AND AT LOWEST POSITION. WILL CONTINUE TO MONITOR.
[2020-03-29 20:00] VITALS: BP_SYST 142
[2020-03-29] MEDS ORDERED: QUEtiapine FUMARATE 25 MG TABLET PO SCH (21:00)
--- NOTE | 2020-03-29 21:30 | NUR ---
ROUNDS/POTASSIUM DONE PATIENT IN BED, NO SIGNS OF DISCOMFORT, CHEST RISE AND FALL EVEN BILATERALLY. POTASSIUM IV FINISHED AT THIS TIME. LAB DRAW WILL BE DONE 1 HOUR AFTER. IV SITE FLUSHED, ZYVOX ADMINISTERED. ALL NEEDS MET. BED ALARM ON. WILL CONTINUE TO MONITOR.
--- NOTE | 2020-03-29 23:01 | NUR ---
FOLLOW UP LAB/ROUNDS CALLED LAB REGARDING LAB DRAW, THEY ARE DOING SHIFT CHANGE AND WILL ENDORSE TO INCOMING SUPERVISOR TYPE PHOTOGRAPHY. PATIENT IN BED, NO S/S OF ACUTE DISTRESS NOTED. HOB RAISED. BREATHING EVEN AND UNLABORED. IVF AND TUBE FEEDING INFUSING WELL. BED ALARM ON. WILL CONTINUE TO MONITOR.
[2020-03-30] VITALS: BP_SYST 125
[2020-03-30 00:19] LABS: ALBUMIN 2.3 g/dL (3.4-4.8); CREATININE 0.81 mg/dL (0.55-1.30); TOTAL BILIRUBIN 0.4 mg/dL (0.0-1.0)
[2020-03-30 00:25] LABS: POTASSIUM 2.1 mmol/L (3.5-5.1)
[2020-03-30] MEDS ORDERED: POTASSIUM CHLORIDE 40 MEQ in NS 250 ML IV ONE (00:30)
--- NOTE | 2020-03-30 00:31 | NUR ---
CRITICAL LAB/POTASSIUM/PRN WRITTEN CRITICAL LAB RECEIVED, POTASSIUM 2.1, WRITTEN PRN ORDER TO ADMINISTER ANOTHER KRIDER 40 MEQ IV, AND TO REPEAT LAB 1 HOUR AFTER, WILL CARRY OUT ORDER. PATIENT SHOWS NO S/S OF ACUTE DISTRESS. VITALS WNL, NSR ON TELE MONITOR. WILL CONTINUE TO MONITOR.
[2020-03-30] MEDS: D5NS 1,000 ML IV SCH ×3 (00:45→13:45)
[2020-03-30] MEDS: KCL 20 mEq in 100 mL (PREMIX) 100 ML IV SCH ×2 (00:46→03:04)
[2020-03-30] MEDS: MORPHINE 4 MG/ML INJ. SYRINGE IVP PRN (00:48)
--- NOTE | 2020-03-30 01:30 | NUR ---
WOUNDCARE/INCONTINENT CARE PATIENT CLEANED BY TEMPERATURE CONTROL INSPECTOR AND RN AT THIS TIME. WOUND CARE DONE ON RIGHT CHEST, PICTURE TAKEN, DOCUMENTED AND FILED. PATIENT TOLERATED WELL. ALL NEEDS MET. BED ALARM ON. IVF AND KRIDER INFUSING WELL. WILL CONTINUE TO MONITOR.
[2020-03-30] MEDS: ALBUTEROL SULFATE 0.083% 2.5 MG/3 ML VIAL.NEB INH SCH ×5 (02:20→19:25)
[2020-03-30] MEDS: IPRATROPIUM BROM 0.5 MG/2.5 ML VIAL.NEB (ATROVENT) INH SCH ×5 (02:21→19:25)
--- NOTE | 2020-03-30 03:30 | NUR ---
ROUNDS PATIENT SLEEPING AT THIS TIME. NO S/S OF ACUTE DISTRESS. HOB RAISED. BREATHING EVEN AND UNLABORED. BED ALARM ON. WILL CONTINUE TO MONITOR.
[2020-03-30] MEDS: PIPERACILLIN/TAZO 3.375/DEX-IS 50 ML IV SCH ×3 (05:32→17:21)
--- NOTE | 2020-03-30 06:20 | NUR ---
CLOSING NOTES PATIENT IN BED, EYES CLOSED, APPEARS TO BE ASLEEP. NO S/S OF ACUTE DISTRESS NOTED. BREATHING EVEN AND UNLABORED. HOB RAISED, VENT TO TRACH ATTACHED AND OPERATING, PATIENT TOLERATING WELL, SPO2 AT 98 ON TELE MONITOR. DOTSON ATTACHED, SECURED, AND DRAINING BY GRAVITY. IVF AND TUBE FEEDING INFUSING WELL. IV SITE PATENT, NO SIGNS OF INFILTRATION OR INFECTION NOTED. DRESSING ON RIGHT CHEST CLEAN, DRY, AND INTACT. ALL NEEDS MET THROUGHOUT SHIFT. FALL AND SAFETY PRECAUTIONS MAINTAINED THROUGHOUT SHIFT. WILL CONTINUE TO MONITOR UNTIL PATIENT ARE IS ENDORSED TO ONCOMING DAYSHIFT NURSE.
--- NOTE | 2020-03-30 08:00 | NUR ---
Initial notes Awake, non verbal. On cpap 09/09,255 FIO2, tolerating so far. repositioned and oral care done. tolerating feeding. Dressing on the right breast is dry and intact. No acute distress noted. Will continue to monitor.
[2020-03-30 08:08] VITALS: BP_SYST 128
--- NOTE | 2020-03-30 08:30 | NUR ---
RT NOTES PLACED PT ON T-BAR 2L O2 PER DR. TAY. PT TOLERATING WELL. RN REMA MADE AWARE. WILL CONTINUE MONITORING.
[2020-03-30] MEDS: QUEtiapine FUMARATE 25 MG TABLET PO SCH ×2 (08:34→20:48)
[2020-03-30] MEDS: LINEZOLID 300 ML IV SCH ×2 (08:34→20:50)
[2020-03-30] MEDS: HEPARIN SODIUM,PORCINE 5,000 UNITS/ML VIAL SUBCUT SCH ×2 (08:36→20:51)
[2020-03-30 08:39] LABS: ALBUMIN 2.2 g/dL (3.4-4.8); CALCIUM 7.8 mg/dL (8.4-11.0); CREATININE 0.66 mg/dL (0.55-1.30); TOTAL BILIRUBIN 0.5 mg/dL (0.0-1.0)
--- NOTE | 2020-03-30 09:21 | NUR ---
HIGH ALERT NOTE: Called Dr. León covering for Dr rodriguez back at [phone] identified within the medical roster to verify physician authenticity.
[2020-03-30] MEDS ORDERED: KCL 40 mEq in 100 mL (PREMIX) 100 ML IV ONE (09:30)
--- NOTE | 2020-03-30 10:14 | NUR ---
CONSULTATION PAGED/CALLED Reason for Consultation: [] HYPOKALEMIA Person Who was Notified: [] TOM Consulting Physician: [] DR MERAZ Wheelage Clerk Specialty: [] NEPHROLOGY Ordering Physician: [] DR HAYNES
[2020-03-30] MEDS ORDERED: MAGNESIUM SULFATE 50 ML IV ONE (11:30)
[2020-03-30 12:00] VITALS: BP_SYST 131
[2020-03-30] MEDS ORDERED: acetaZOLAMIDE 250 MG TABLET (DIAMOX) ONE ×3 (14:05→20:37)
[2020-03-30] MEDS: acetaZOLAMIDE 250 MG TABLET (DIAMOX) PO SCH ×3 (14:12→20:48)
--- NOTE | 2020-03-30 15:12 | NUR ---
Security Technician: follow up CLIENT OPERATIONS MANAGER called Rn. Plasencia for any updates. Rn stated infectious disease Dr. Rubio will most likely come in the evening. Currently, patient is still receiving antibiotics and potassium is low. CLIENT OPERATIONS MANAGER thanked Rn for the update.
[2020-03-30 15:50] VITALS: BP_SYST 128
--- NOTE | 2020-03-30 16:15 | NUR ---
notes- called ct scan to follow up on stat CT chest order. Addendum: 03/30/20 at 1616 by Celine Blankenship RN wrong entry...disregard above notes.
--- NOTE | 2020-03-30 16:16 | NUR ---
Notes- Reposition and Sanctioning done, Still on Tbar. tolerating well.
--- NOTE | 2020-03-30 18:15 | NUR ---
Nutrition F/U RD reviewed pt's current EMR record including diet Hx, physician notes, nursing notes, pertinent labs/meds/procedures, care trends, and care activity. Admission Dx: Septic Shock PMH: R sided breast mass, anoxic brain injury, chronic tracheotomy, PEG tube dependent, ventilation dependent, chronic hypoxemic respiratory failure Pt also found w/ R-sided breast abscess per MD note SARS-CoV-2 Ag Rapid Negative 03/25 SARS-CoV-2 PCR Negative 03/26 Current Diet Order/Nutrition Support: Glucerna 1.2 at 70 ml/hr, Free Water Flush: 180 Q4H via GT x3 days Subjective Info: Per EMR review, pt has been tolerating TF well without any s/s of intolerance; TF Intakes: 840 ml 03/30; GRV: 0 ml 03/30; last BM x3 03/30. Current TF regimen remains adequate/appropriate. Pertinent Medications Reviewed Pertinent Labs Na 147, K 2 L, BG 104 H, ALB 2.2 L Skin Integrity Comment: Joao score 13. No PI/edema noted. Reviewed [employer] note (03/27) Current % PO N/A, on NPO NEW Estimated Energy Expenditure (kcals/day) 6532-0167 kcal/day (35-40 kcal/kg IBW for repletion) NEW Estimated Protein Required (g/day) 69-92 gm pro/day (1.5-2 gm pro/kg IBW for repletion; healing) NEW Estimated Fluid Required (l/day) 1.6-1.8 L/day (1 ml/kcal/day for maintenance) Problem/Etiology/Signs/Symptoms Inadequate protein-energy intake r/t underweight and NPO status AEB 85% IBW, BMI 16.6 kg/m2, and need for NPO status. *met w/ current TF regimen Expected Outcomes/Goals -Will monitor initiation and tolerance of nutrition support w/ goal of pt meeting at least 75% of estimated nutritional needs, labs, trending WNL, normal GI function, skin integrity, and weight maintenance. Dietitian Recommendations * Recommend continuing Glucerna 1.2 at 70 ml/hr, Free Water Flush: 180 ml Q4H via GT Provides: 2016 kcal/day, 101 gm protein/day, and 2432 ml free water/day Meets: 110% of upper end of estimated caloric and protein needs Follow Up High Risk: F/U in 2-3 days
--- NOTE | 2020-03-30 18:19 | NUR ---
Notes- Afebrile, tolerating TBAR at 2L. tolerating feeding. No acute distress noted.
--- NOTE | 2020-03-30 18:24 | NUR ---
Dietitian Recommendations * Recommend continuing Glucerna 1.2 at 70 ml/hr, Free Water Flush: 180 ml Q4H via GT Provides: 2016 kcal/day, 101 gm protein/day, and 2432 ml free water/day Meets: 110% of upper end of estimated caloric and protein needs LP, RD Please refer to Nutrition F/U for details.
--- NOTE | 2020-03-30 19:15 | NUR ---
OPENING NOTE REPORT RECEIVED FROM DAYSSCFT NURSE. PATIENT RECEIVED LYING IN BED, EYES CLOSED, APPEARS TO BE ASLEEP. NO S/S OF ACUTE DISTRESS NOTED. BREATHING EVEN AND UNLABORED. HOB RAISED. TRACH TO TBAR, ON 2L OF OXYGEN, PATIENT TOLERATING WELL, SPO2 98. IVF AND TUBE FEEDING INFUSING WELL. IV SITE PATENT, NO SIGNS OF INFILTRATION OR INFECTION NOTED. DOTSON ATTACHED, SECURED, AND DRAINING BY GRAVITY. BED ALARM ON. BED IS LOCKED AND AT LOWEST POSITION. WILL CONTINUE TO MONITOR.
[2020-03-30 20:00] VITALS: BP_SYST 108
--- NOTE | 2020-03-30 21:00 | NUR ---
[facility]PASS/ROUNDS SCHEDULED MEDICATIONS ADMINISTERED AT THIS TIME. PATIENT IN BED, ASLEEP. NO SIGNS OF DISCOMFORT, CHEST RISE AND FALL EVEN BILATERALLY. ALL NEEDS MET. BED ALARM ON. WILL CONTINUE TO MONITOR.
[2020-03-30] MEDS ORDERED: cefTRIAXone 1 GM IVPB PREMIX 50 ML IV ONE (21:33)
--- NOTE | 2020-03-30 22:30 | NUR ---
FACETIME PATIENT'S MOTHER REQUESTED TO HAVE FACETIME WITH PATIENT, TABLET PLACED AT BEDSIDE AND CONTACTED PATIENT'S MOTHER. PATIENT IN BED, HOB RAISED, NO S/S OF ACUTE DISTRESS, ASLEEP. BREATHING EVEN AND UNLABORED. IVF AND TUBEFEEDING INFUSING WELL. ALL NEEDS MET. BED ALARM ON. WILL CONTINUE TO MONITOR
[2020-03-30] MEDS: cefTRIAXone 1 GM in D5W 50 ML IV SCH (23:18)
[2020-03-31] VITALS: BP_SYST 106
--- NOTE | 2020-03-31 00:45 | NUR ---
ROUNDS PATIENT IN BED, ASLEEP. NO S/S OF ACUTE DISTRESS. BREATHING EVEN AND UNLABORED. HOB RAISED. IVF AND TUBE FEEDING INFUSING WELL. ALL NEEDS MET. BED ALARM ON. WILL CONTINUE TO MONITOR.
--- NOTE | 2020-03-31 03:00 | NUR ---
WOUNDCARE/INCONTINENT CARE WOUND CARE AND INCONTINENT CARE DONE AT THIS TIME. PATIENT TOLERATED WELL. ALL NEEDS MET. BED ALARM ON. WILL CONTINUE TO MONITOR.
[2020-03-31] MEDS: D5NS 1,000 ML IV SCH ×2 (03:24→20:07)
--- NOTE | 2020-03-31 06:37 | NUR ---
CLOSING NOTE PATIENT IN BED, HOB RAISED, NO S/S OF ACUTE DISTRESS NOTED. BREATHING EVEN AND UNLABORED. TRACH TO TBAR, ON 2L OF OXYGEN, PATIENT TOLERATING WELL, SPO2 AT 98 ON TELE MONITOR. IVF INFUSING WELL, IV SITE IS PATENT, NO SIGNS OF INFILTRATION OR INFECTION NOTED. TUBE FEEDING INFUSING WELL, TOLERATING WELL, RESIDUAL AT 0 ML. DOTSON ATTACHED, SECURED, AND DRAINING BY GRAVITY. ALL NEEDS MET. THROUGHOUT SHIFT. FALL, SAFETY AND ASPIRATIONS PRECAUTIONS MAINTAINED THROUGHOUT SHIFT. WILL CONTINUE TO MONITOR UNTIL PATIENT CARE IS ENDORSED TO ONCOMING DAYSHIFT NURSE.
[2020-03-31 07:04] LABS: BASOPHILS % (AUTO) 0.1 % (0.0-2.0); EOSINOPHILS # (AUTO) 0.4 K/uL (0.0-0.4); EOSINOPHILS % (AUTO) 3.2 % (0.0-4.0); HEMATOCRIT 33.4 % (36-48); LYMPHOCYTES # (AUTO) 2.1 K/uL (1.0-5.5); LYMPHOCYTES % (AUTO) 15.5 % (20.5-51.5); MEAN CORPUSCULAR HEMOGLOBIN 31 pg (27-31); MEAN CORPUSCULAR HGB CONC 33 % (32-36); MEAN CORPUSCULAR VOLUME 94 fL (79.0-98.0); MONOCYTES # (AUTO) 0.7 K/uL (0.0-1.0); MONOCYTES % (AUTO) 4.9 % (1.7-9.3); NEUTROPHILS # (AUTO) 10.4 K/uL (1.8-7.7); NEUTROPHILS % (AUTO) 76.3 % (40.0-70.0); PLATELET COUNT (AUTO) 259 K/uL (130-430); RED BLOOD CELL COUNT(AUTO) 3.56 MIL/uL (4.2-6.2); RED CELL DISTRIBUTION WIDTH 14.5 % (9.0-15.0); WHITE BLOOD COUNT (AUTO) 13.6 K/uL (4.8-10.8)
[2020-03-31 07:25] LABS: ALBUMIN 2.3 g/dL (3.4-4.8); CALCIUM 8.3 mg/dL (8.4-11.0); CREATININE 0.61 mg/dL (0.55-1.30); TOTAL BILIRUBIN 0.3 mg/dL (0.0-1.0)
[2020-03-31 07:27] LABS: POTASSIUM 2.9 mmol/L (3.5-5.1)
[2020-03-31] MEDS: IPRATROPIUM BROM 0.5 MG/2.5 ML VIAL.NEB (ATROVENT) INH SCH ×5 (07:34→23:05)
[2020-03-31] MEDS: ALBUTEROL SULFATE 0.083% 2.5 MG/3 ML VIAL.NEB INH SCH ×5 (07:34→23:05)
--- NOTE | 2020-03-31 07:45 | NUR ---
PAGED PAGED ALLISON MCCALL AT [phone] APOKW DONNIE SHEIKH.
--- NOTE | 2020-03-31 07:56 | NUR ---
CONSULTATION PAGED REASON FOR CONSULTATION:LOW POTASSIUM WAS CONSULT CALLED?Y PERSON WHO WAS NOTIFIED:ERASMO CONSULTING PHYSICIAN:MICAH HIGUERA TRANSIT BUS DRIVER SPECIALTY:[employer] TRANSIT BUS DRIVER PHONE NUMBER:[phone] ORDERING PHYSICIAN:ALLISON SHEIKH
[2020-03-31 08:00] VITALS: BP_SYST 110
[2020-03-31] MEDS ORDERED: POTASSIUM CHLORIDE 40 MEQ in NS 250 ML IV ONE (08:00)
--- NOTE | 2020-03-31 08:13 | NUR ---
again K+ this am, 2.9, nephro called and made aware patient need 60 KRIDER.
[2020-03-31] MEDS ORDERED: POTASSIUM CHLORIDE 60 MEQ in NS 250 ML IV ONE (08:30)
--- NOTE | 2020-03-31 09:27 | NUR ---
DC Barriers: low K:2.9, pending IV abx per ID.
[2020-03-31] MEDS: QUEtiapine FUMARATE 25 MG TABLET PO SCH ×2 (09:37→20:24)
[2020-03-31] MEDS: LINEZOLID 300 ML IV SCH ×2 (09:37→20:24)
[2020-03-31] MEDS: HEPARIN SODIUM,PORCINE 5,000 UNITS/ML VIAL SUBCUT SCH ×2 (09:38→20:25)
--- NOTE | 2020-03-31 11:15 | NUR ---
alert, awake and non-verbal. Got startled on voices, on tactile stimuli. K+ again this am, per nephro, 60K rider given right away contracted both hands, and lower extremities. On tube feed, tolerates so far.
[2020-03-31 11:20] VITALS: BP_SYST 107
[2020-03-31 11:27] VITALS: BP_SYST 107
[2020-03-31 16:06] VITALS: BP_SYST 140
--- NOTE | 2020-03-31 19:15 | NUR ---
OPENING NOTE REPORT RECEIVED FROM DAYSWYFT NURSE. PATIENT RECEIVED LYING IN BED, AWAKE, NON VERBAL, NO S/S OF ACUTE DISTRESS NOTED. BREATHING EVEN AND UNLABORED. HOB RAISED. TRACH TO TBAR, ON 2L OF OXYGEN, TOLERATING WELL, SPO2 AT 98 ON TELE MONITOR. IVF AND TUBE FEEDING INFUSING WELL, IV SITE IS PATENT, NO SIGNS OF INFILTRATION OR INFECTION NOTED. DOTSON ATTACHED, SECURED, AND DRAINING BY GRAVITY. BED ALARM ON. BED IS LOCKED AND AT LOWEST POSITION. WILL CONTINUE TO MONITOR.
[2020-03-31 20:00] VITALS: BP_SYST 122
[2020-03-31] MEDS: cefTRIAXone 1 GM in D5W 50 ML IV SCH (20:07)
[2020-03-31] MEDS ORDERED: acetaZOLAMIDE 250 MG TABLET (DIAMOX) ONE (20:22)
--- NOTE | 2020-03-31 21:00 | NUR ---
ROUNDS/PERICARE PATIENT IN BED, AWAKE, NO S/S OF ACUTE DISTRESS. PATIENT CLEANED AT THIS TIME, TOLERATED WELL. ALL NEEDS MET. BED ALARM ON. WILL CONTINUE TO MONITOR.
--- NOTE | 2020-03-31 23:00 | NUR ---
ROUNDS PATIENT IN BED, SLEEPING, AWAKE, NO SIGNS OF DISCOMFORT NOTED. CHEST RISE AND FALL EVEN BILATERALLY. HOB RAISED. ALL NEEDS MET. BED ALARM ON. WILL CONTINUE TO MONITOR .
[2020-04-01] VITALS: BP_SYST 110
--- NOTE | 2020-04-01 01:00 | NUR ---
ROUNDS PATIENT IN BED, AWAKE, NO S/S OF ACUTE DISTRESS. HOB RAISED. BREATHING EVEN AND UNLABORED. IVF AND TUBE FEEDING INFUSING WELL. DOTSON ATTACHED, SECURED, AND DRAINING BY GRAVITY. BED ALARM ON. WILL CONTINUE TO MONITOR.
[2020-04-01] MEDS: MORPHINE 4 MG/ML INJ. SYRINGE IVP PRN (03:00)
--- NOTE | 2020-04-01 03:00 | NUR ---
ROUNDS NO CHANGE IN CONDITION. PATIENT AWAKE, BED ALARM ON. WILL CONTINUE TO MONITOR.
[2020-04-01] MEDS: ALBUTEROL SULFATE 0.083% 2.5 MG/3 ML VIAL.NEB INH SCH ×3 (03:05→11:03)
[2020-04-01] MEDS: IPRATROPIUM BROM 0.5 MG/2.5 ML VIAL.NEB (ATROVENT) INH SCH ×3 (03:05→11:04)
--- NOTE | 2020-04-01 04:00 | NUR ---
PERICARE/WOUNDCARE PATIENT CLEANED AND WOUND CARE DONE. TOLERATED WELL. MEDICATED PRIOR TO WOUND CARE. ALL NEEDS MET. BED ALARM ON. WILL CONTINUE TO MONITOR.
--- NOTE | 2020-04-01 06:20 | NUR ---
CLOSING NOTES PATIENT IN BED, NO S/S OF ACUTE DISTRESS NOTED. BREATHING EVEN AND UNLABORED. HOB RAISED, TRACH TO TBAR, ON 2L OF OXYGEN, TOLERATING WELL, 99 SPO2 ON TELE MONITOR. IVF AND TUBE FEEDING INFUSING WELL, IV SITE PATENT, NO SIGNS OF INFILTRATION OR INFECTION NOTED. DOTSON ATTACHED, SECURED AND DRAINING BY GRAVITY. ALL NEEDS MET THROUGHOUT SHIFT. FALL, SAFETY PRECAUTIONS MAINTAINED THROUGHOUT SHIFT. WILL CONTINUE TO MONITOR UNTIL PATIENT CARE IS ENDORSED TO ONCOMING DAYSHIFT NURSE.
[2020-04-01 06:44] LABS: BASOPHILS % (AUTO) 0.1 % (0.0-2.0); EOSINOPHILS # (AUTO) 0.3 K/uL (0.0-0.4); EOSINOPHILS % (AUTO) 2.6 % (0.0-4.0); HEMATOCRIT 33.9 % (36-48); HEMOGLOBIN 11.2 g/dL (12.0-16.0); LYMPHOCYTES # (AUTO) 2.1 K/uL (1.0-5.5); LYMPHOCYTES % (AUTO) 15.8 % (20.5-51.5); MEAN CORPUSCULAR HEMOGLOBIN 31 pg (27-31); MEAN CORPUSCULAR HGB CONC 33 % (32-36); MEAN CORPUSCULAR VOLUME 93 fL (79.0-98.0); MONOCYTES # (AUTO) 0.7 K/uL (0.0-1.0); NEUTROPHILS % (AUTO) 76.5 % (40.0-70.0); PLATELET COUNT (AUTO) 288 K/uL (130-430); RED BLOOD CELL COUNT(AUTO) 3.65 MIL/uL (4.2-6.2); RED CELL DISTRIBUTION WIDTH 14.4 % (9.0-15.0); WHITE BLOOD COUNT (AUTO) 13.1 K/uL (4.8-10.8)
[2020-04-01 07:49] LABS: ALBUMIN 2.5 g/dL (3.4-4.8); CALCIUM 8.3 mg/dL (8.4-11.0); CREATININE 0.7 mg/dL (0.55-1.30); TOTAL BILIRUBIN 0.3 mg/dL (0.0-1.0)
--- NOTE | 2020-04-01 09:00 | NUR ---
Perineal area dry/clean ,Patient repositioned by staff every 2 hours with pillow support., Right below the breast dressing dry/clean intact .head of bed kept semi fowlers aspiration precaution.
[2020-04-01] MEDS: QUEtiapine FUMARATE 25 MG TABLET PO SCH (09:01)
[2020-04-01] MEDS: LINEZOLID 300 ML IV SCH (09:01)
[2020-04-01] MEDS: HEPARIN SODIUM,PORCINE 5,000 UNITS/ML VIAL SUBCUT SCH (09:02)
[2020-04-01 09:03] VITALS: BP_SYST 117
--- NOTE | 2020-04-01 09:22 | NUR ---
HIGH ALERT NOTE: Called Dr. Antonio back atphone no. [phone] identified within the medical roster to verify physician authenticity.for order of K rider 40 meq
[2020-04-01] MEDS ORDERED: POTASSIUM CHLORIDE 40 MEQ in NS 250 ML IV ONE (09:30)
--- NOTE | 2020-04-01 10:33 | NUR ---
DISCHARGE PLANNING Received call from Eda @ [facility], direct # [phone], & updated on pt status. States to call her when pt ready for discharge.
--- NOTE | 2020-04-01 10:50 | NUR ---
Hypokalemia Potassium 3 Krider 40 meq with 250 ml NS started AT 67 ML/ HOUR with PICC line patent dry/clean.
[2020-04-01 11:29] VITALS: BP_SYST 127
--- NOTE | 2020-04-01 11:41 | NUR ---
Paged Dr. Rubio for clearance for discharge
[2020-04-01] MEDS ORDERED: CLIN150C15 GT (12:04)
[2020-04-01] MEDS ORDERED: CEPH-568 GT (12:04)
--- NOTE | 2020-04-01 12:30 | NUR ---
DISCHARGE PLANNING Discussed dc plan with Dr Donnelly in nsg station. discussed with Dr Rubio & per Dr Donnelly pt ok to dc to [facility] today with Po Keflex & Po Clindamycin, no IV abx needed. Pt's nurse present & aware. Called & spoke with mother Bronwyn Stone in [place], ph [phone], & informed. Agreeable with plan to discharge back to [facility] today. Updated cecilio Elliott logistics planner.
--- NOTE | 2020-04-01 12:44 | NUR ---
Discharge Planning: DCP faxed pt reerfral to [facility]. Care (f [phone] p [phone]) DCP will follow up Addendum: 04/01/20 at 1518 by Lexi Kapadia DP DCP followed up with Eda at [facility]. Care (f [phone] p [phone]) patient will go to 2 Transportation arranged with [facility] ([phone]) BLS on Trach 2 liters Oxygen. DCP took patient packet to nurse station.
--- NOTE | 2020-04-01 13:25 | NUR ---
PICC line dressing changed under aseptic technique
--- NOTE | 2020-04-01 13:40 | NUR ---
Skin care/comfort Completes TSB, oral care , perineal care given, skin cream barrier applied repositioned, all extremities contracted supported by pillow
[2020-04-01 13:53] VITALS: BP_SYST 125
--- NOTE | 2020-04-01 14:35 | NUR ---
Suctioned oral secretion/oral care minimal amount , no sign of acute distress.
--- NOTE | 2020-04-01 15:27 | NUR ---
Report given to Vasile with all the information; family member Chase Barnhart mother informed regarding discharge and agreed.
[2020-04-01 15:34] VITALS: BP_SYST 125
--- NOTE | 2020-04-01 15:36 | NUR ---
Woodruff catheter removed , perineal care given
--- NOTE | 2020-04-01 16:10 | NUR ---
Feeding on hold GTUBE flush with water
--- NOTE | 2020-04-01 17:25 | NUR ---
Discharged patient to [facility] via [facility], on 2 liter TBAR endorsed patient ,no belongings,patient is awake , trache care suction secretion by RT, no sign of acute distress.
== END 2020-04-01 17:25 | DRG 710 ==
LOC: SED 15:28 → SIC 18:56 → STU 03-28 04:48
PROVIDERS: ADMIT Internal Medicine Hospice and Palliative Medicine; ATTEND Internal Medicine Hospice and Palliative Medicine
PROC: 5A1955Z Respiratory Ventilation, Greater than 96 Consecutive Hours (ICD-10-PCS; 2020-03-25)
PROC: 0HBT0ZX Excision of Right Breast, Open Approach, Diagnostic (ICD-10-PCS; 2020-03-27)
PROC: 0H9T0ZX Drainage of Right Breast, Open Approach, Diagnostic (ICD-10-PCS; principal; 2020-03-27 17:30)
DX: A41.9 Sepsis, unspecified organism (principal); J96.11 Chronic respiratory failure with hypoxia; G93.1 Anoxic brain damage, not elsewhere classified; R53.2 Functional quadriplegia; R65.21 Severe sepsis with septic shock; E87.6 Hypokalemia; E87.3 Alkalosis; N61.1 Abscess of the breast and nipple; Z20.828 Contact with and (suspected) exposure to other viral communicable diseases; Z93.0 Tracheostomy status; Z87.820 Personal history of traumatic brain injury; Z79.891 Long term (current) use of opiate analgesic; Z88.8 Allergy status to other drugs, medicaments and biological substances; Z99.11 Dependence on respirator [ventilator] status; Z86.74 Personal history of sudden cardiac arrest
CPT/HCPCS: 36415; 36600; 71045; 71250-TC; 76376; 76642; 80053; 81000-TC; 82803-TC; 83605; 83735-TC; 84132-TC; 85007; 85025; 85027; 86710; 87040-TC; 87070; 87070-TC; 87075-TC; 87081; 87205-TC; 88305; 94003; 94640; 94760; 96365; 96375; 99291; G0378; J0696; J1170; J1200; J1644; J1720; J2020; J2270; J2543; J3370; J3475; J3480; J3490; J7042; J7050; J7060; J7613; Q9967; U0003

== ENCOUNTER 2020-05-06 15:24 | Inpatient (IN) | payer OTHER, SELFPAY ==
[~2020-05-06] VITALS: Ht 147.3 cm; Wt 56.7 kg
[~2020-05-06 15:24] MED LIST: ACET-2634 GT; ACET325T GT; AMIN30LI2 GT; CEPH-568 GT; CHLO473M5 PO; CLIN150C15 GT; HYDR-4274 GT; MULT9LIQ9 GT; ONDA4TAB5 GT; POLY17PO4 PO; PRO40 GT; SENN8.6T19 GT
[2020-05-06 15:36] VITALS: BP_SYST 112
[2020-05-06] MEDS ORDERED: NACL 0.9% 1,000 ML IV ONE ×2 (16:15→17:30)
[2020-05-06 16:56] LABS: BASOPHILS # (AUTO) 0.1 K/uL (0.0-0.2); BASOPHILS % (AUTO) 1.1 % (0.0-2.0); EOSINOPHILS # (AUTO) 0.2 K/uL (0.0-0.4); EOSINOPHILS % (AUTO) 1.6 % (0.0-4.0); HEMATOCRIT 36.8 % (36-48); HEMOGLOBIN 12.2 g/dL (12.0-16.0); LYMPHOCYTES # (AUTO) 3.3 K/uL (1.0-5.5); MEAN CORPUSCULAR HEMOGLOBIN 30 pg (27-31); MEAN CORPUSCULAR HGB CONC 33 % (32-36); MEAN CORPUSCULAR VOLUME 92 fL (79.0-98.0); MONOCYTES # (AUTO) 1.1 K/uL (0.0-1.0); MONOCYTES % (AUTO) 9.1 % (1.7-9.3); NEUTROPHILS # (AUTO) 7.1 K/uL (1.8-7.7); NEUTROPHILS % (AUTO) 60.2 % (40.0-70.0); PLATELET COUNT (AUTO) 429 K/uL (130-430); RED BLOOD CELL COUNT(AUTO) 4.01 MIL/uL (4.2-6.2); WHITE BLOOD COUNT (AUTO) 11.8 K/uL (4.8-10.8)
[2020-05-06 17:24] LABS: PROTHROMBIN TIME 10.3 SECS (9.5-12.5)
[2020-05-06 17:29] LABS: CALCIUM 9.4 mg/dL (8.4-11.0); CREATININE 0.54 mg/dL (0.55-1.30); POTASSIUM 4.2 mmol/L (3.5-5.1)
[2020-05-06] MEDS ORDERED: fentaNYL CITRATE/PF 100 MCG/2 ML AMP IVP ONE (17:30)
[2020-05-06 17:32] LABS: ALBUMIN 2.7 g/dL (3.4-4.8); TOTAL BILIRUBIN 0.4 mg/dL (0.0-1.0)
[2020-05-06] MEDS: D5/0.45 NS 1,000 ML IV SCH ×2 (19:15→19:45)
[2020-05-06] MEDS ORDERED: ONDANSETRON 4 MG ODT TAB GT PRN (19:45)
[2020-05-06] MEDS ORDERED: ACETAMINOPHEN CHILDREN'S 160 MG/5 ML ORAL.SUSP GT PRN (19:45)
[2020-05-06] MEDS ORDERED: NALOXONE HCL 0.4 MG/ML AMP (NARCAN) IVP PRN (19:45)
[2020-05-06] MEDS ORDERED: CHLORHEXIDINE GLUCONATE 15 ML/DOSE, 480 ML MM SCH (19:45)
[2020-05-06] MEDS ORDERED: ALBUTEROL SULFATE 0.083% 2.5 MG/3 ML VIAL.NEB INH PRN (19:45)
[2020-05-06] MEDS ORDERED: POLYETHYLENE GLYCOL 3350, 17 GM/ POWD.PACK GT PRN (19:45)
[2020-05-06] MEDS ORDERED: ONDANSETRON HCL 4 MG/2 ML VIAL IVP PRN (19:45)
[2020-05-06] MEDS ORDERED: NON-FORMULARY MEDICATION (Amino Acids/Protein Hydrolys (Pro-Stat Liquid) 30 ML) GT SCH (21:00)
[2020-05-06] MEDS ORDERED: LORazepam 2 MG/ML VIAL ONE (21:39)
[2020-05-06] MEDS ORDERED: LORazepam 2 MG/ML VIAL IVP ONE (21:45)
[2020-05-06] MEDS: cephALEXin 500 MG CAPSULE GT SCH (22:07)
[2020-05-06] MEDS: CLINDAMYCIN HCL 150 MG CAPSULE GT SCH (22:07)
[2020-05-06 22:52] LABS: BILIRUBIN,URINE NEGATIVE (NEGATIVE); BLOOD, URINE 2+ (NEGATIVE); COLOR,URINE YELLOW (YELLOW); GLUCOSE,URINE NEGATIVE (NEGATIVE); KETONES,URINE NEGATIVE (NEGATIVE); LEUKOCYTE ESTERASE ,URINE NEGATIVE (NEGATIVE); NITRITE, URINE NEGATIVE (NEGATIVE); PH,URINE 5.5 (5.0-8.0); PROTEIN URINE NEGATIVE (NEGATIVE); UROBILINOGEN,URINE 0.2 (0.2-1.0)
[2020-05-06 22:56] LABS: CLARITY/URINE SLIGHTLY CLOUDY (CLEAR)
[2020-05-06 23:27] LABS: BACTERIA,URINE FEW /HPF (None Seen); WBC,URINE 0-3 /HPF (0-3)
[2020-05-07] MEDS: D5/0.45 NS 1,000 ML IV SCH ×4 (06:21→15:45)
[2020-05-07 06:50] LABS: BASOPHILS # (AUTO) 0.1 K/uL (0.0-0.2); BASOPHILS % (AUTO) 0.6 % (0.0-2.0); EOSINOPHILS % (AUTO) 0.3 % (0.0-4.0); HEMOGLOBIN 11.2 g/dL (12.0-16.0); LYMPHOCYTES # (AUTO) 2.6 K/uL (1.0-5.5); MEAN CORPUSCULAR HEMOGLOBIN 30 pg (27-31); MEAN CORPUSCULAR HGB CONC 33 % (32-36); MEAN CORPUSCULAR VOLUME 92 fL (79.0-98.0); MONOCYTES # (AUTO) 1.1 K/uL (0.0-1.0); MONOCYTES % (AUTO) 8.6 % (1.7-9.3); NEUTROPHILS % (AUTO) 70.5 % (40.0-70.0); PLATELET COUNT (AUTO) 382 K/uL (130-430); RED BLOOD CELL COUNT(AUTO) 3.72 MIL/uL (4.2-6.2); RED CELL DISTRIBUTION WIDTH 15.4 % (9.0-15.0); WHITE BLOOD COUNT (AUTO) 12.8 K/uL (4.8-10.8)
[2020-05-07 07:00] VITALS: BP_SYST 118
[2020-05-07 07:01] LABS: CALCIUM 8.9 mg/dL (8.4-11.0); CREATININE 0.51 mg/dL (0.55-1.30); POTASSIUM 3.6 mmol/L (3.5-5.1)
[2020-05-07] MEDS: MULTIVIT-MINERALS/FERROUS GLUC 15 ML UDC GT SCH (09:00)
[2020-05-07 10:41] VITALS: BP_SYST 106
[2020-05-07 10:54] VITALS: BP_SYST 106
[2020-05-07] MEDS: cephALEXin 500 MG CAPSULE GT SCH ×2 (11:15→12:09)
[2020-05-07] MEDS: LANSOPRAZOLE 30 MG CAPSULE.DR GT SCH (11:15)
[2020-05-07] MEDS: CLINDAMYCIN HCL 150 MG CAPSULE GT SCH ×2 (11:15→14:32)
[2020-05-07 13:24] LABS: INR 1.1 (0.8-1.2); PROTHROMBIN TIME 11.6 SECS (9.5-12.5)
[2020-05-07 15:29] VITALS: BP_SYST 136
[2020-05-07 16:25] VITALS: BP_SYST 108
[2020-05-07] MEDS: cefTRIAXone 1 GM in D5W 50 ML IV SCH (17:30)
[2020-05-07] MEDS: LORazepam 2 MG/ML VIAL IVP PRN ×2 (17:30→21:32)
[2020-05-07 20:00] VITALS: BP_SYST 132
[2020-05-08] VITALS: BP_SYST 105
[2020-05-08] MEDS: D5/0.45 NS 1,000 ML IV SCH ×6 (00:46→22:40)
[2020-05-08 06:30] VITALS: BP_SYST 111
[2020-05-08 07:27] LABS: BASOPHILS % (AUTO) 0.4 % (0.0-2.0); EOSINOPHILS # (AUTO) 0.7 K/uL (0.0-0.4); EOSINOPHILS % (AUTO) 6.6 % (0.0-4.0); HEMOGLOBIN 9.8 g/dL (12.0-16.0); LYMPHOCYTES % (AUTO) 18.2 % (20.5-51.5); MEAN CORPUSCULAR HEMOGLOBIN 31 pg (27-31); MEAN CORPUSCULAR HGB CONC 34 % (32-36); MEAN CORPUSCULAR VOLUME 90 fL (79.0-98.0); MONOCYTES # (AUTO) 0.7 K/uL (0.0-1.0); MONOCYTES % (AUTO) 6.2 % (1.7-9.3); NEUTROPHILS # (AUTO) 7.5 K/uL (1.8-7.7); NEUTROPHILS % (AUTO) 68.6 % (40.0-70.0); PLATELET COUNT (AUTO) 295 K/uL (130-430); RED BLOOD CELL COUNT(AUTO) 3.21 MIL/uL (4.2-6.2); RED CELL DISTRIBUTION WIDTH 15.3 % (9.0-15.0); WHITE BLOOD COUNT (AUTO) 10.9 K/uL (4.8-10.8)
[2020-05-08 08:00] VITALS: BP_SYST 105
[2020-05-08 08:03] LABS: CALCIUM 8.5 mg/dL (8.4-11.0); CREATININE 0.34 mg/dL (0.55-1.30)
[2020-05-08 08:47] LABS: POTASSIUM 2.9 mmol/L (3.5-5.1)
[2020-05-08] MEDS: LANSOPRAZOLE 30 MG CAPSULE.DR GT SCH (09:00)
[2020-05-08] MEDS: MULTIVIT-MINERALS/FERROUS GLUC 15 ML UDC GT SCH (09:00)
[2020-05-08] MEDS ORDERED: POTASSIUM CHLORIDE IV ONE (09:15)
[2020-05-08] MEDS ORDERED: NS IV ONE (09:15)
[2020-05-08] MEDS ORDERED: LIDOCAINE JECT IV ONE (09:15)
[2020-05-08] MEDS ORDERED: LR 1,000 ML IV SCH (09:30)
[2020-05-08] MEDS ORDERED: KETOROLAC TROMETHAMINE 30 MG VIAL IVP PRN (09:30)
[2020-05-08] MEDS ORDERED: MEPERIDINE HCL/PF 25 MG/ML DISP.SYRIN IVP PRN (09:30)
[2020-05-08] MEDS ORDERED: METOCLOPRAMIDE HCL 10 MG/2 ML VIAL IVP PRN (09:30)
[2020-05-08] MEDS ORDERED: ONDANSETRON HCL 4 MG/2 ML VIAL IVP PRN (09:30)
[2020-05-08] MEDS ORDERED: HYDROmorphone 1 MG INJ. 1 MG/ML AMPUL ONE ×2 (10:57→11:12)
[2020-05-08] MEDS: HYDROmorphone 1 MG INJ. 1 MG/ML AMPUL IVP PRN ×2 (11:00→11:15)
[2020-05-08] MEDS ORDERED: KETOROLAC TROMETHAMINE 30 MG VIAL ONE (11:11)
[2020-05-08 11:21] LABS: ERYTHROCYTE SEDIMENTATION RATE 62 MM/HR (0-20)
[2020-05-08 12:10] VITALS: BP_SYST 143
[2020-05-08 12:20] LABS: C-REACTIVE PROTEIN QUANT 16.2 mg/dL (0-0.5)
[2020-05-08 16:03] VITALS: BP_SYST 120
[2020-05-08] MEDS: cefTRIAXone 1 GM in D5W 50 ML IV SCH (16:52)
[2020-05-08 20:15] VITALS: BP_SYST 113
[2020-05-08] MEDS: LORazepam 2 MG/ML VIAL IVP PRN (22:15)
[2020-05-08] MEDS: SENNOSIDES 8.6 MG TABLET GT SCH (22:40)
[2020-05-08] MEDS: HYDROcodone/ACETAMIN 10-325 MG TAB GT PRN (22:49)
[2020-05-09 01:01] VITALS: BP_SYST 126
[2020-05-09] MEDS: LORazepam 2 MG/ML VIAL IVP PRN ×5 (02:53→22:20)
[2020-05-09] MEDS: MULTIVIT-MINERALS/FERROUS GLUC 15 ML UDC GT SCH (09:00)
[2020-05-09] MEDS ORDERED: LANSOPRAZOLE 30 MG CAPSULE.DR ONE (09:28)
[2020-05-09] MEDS: LANSOPRAZOLE 30 MG CAPSULE.DR GT SCH (09:39)
[2020-05-09] MEDS: HYDROcodone/ACETAMIN 10-325 MG TAB GT PRN ×4 (09:40→22:20)
[2020-05-09 11:26] LABS: BASOPHILS % (AUTO) 0.2 % (0.0-2.0); EOSINOPHILS # (AUTO) 0.3 K/uL (0.0-0.4); EOSINOPHILS % (AUTO) 3.3 % (0.0-4.0); HEMATOCRIT 22.2 % (36-48); HEMOGLOBIN 7.2 g/dL (12.0-16.0); LYMPHOCYTES # (AUTO) 3.1 K/uL (1.0-5.5); LYMPHOCYTES % (AUTO) 31.4 % (20.5-51.5); MEAN CORPUSCULAR HEMOGLOBIN 29 pg (27-31); MEAN CORPUSCULAR HGB CONC 33 % (32-36); MEAN CORPUSCULAR VOLUME 90 fL (79.0-98.0); MONOCYTES # (AUTO) 0.6 K/uL (0.0-1.0); MONOCYTES % (AUTO) 6.4 % (1.7-9.3); NEUTROPHILS # (AUTO) 5.8 K/uL (1.8-7.7); NEUTROPHILS % (AUTO) 58.7 % (40.0-70.0); PLATELET COUNT (AUTO) 321 K/uL (130-430); RED BLOOD CELL COUNT(AUTO) 2.46 MIL/uL (4.2-6.2); RED CELL DISTRIBUTION WIDTH 15.4 % (9.0-15.0)
[2020-05-09 11:37] LABS: CALCIUM 7.9 mg/dL (8.4-11.0); CREATININE 0.46 mg/dL (0.55-1.30); POTASSIUM 3.2 mmol/L (3.5-5.1)
[2020-05-09 11:56] LABS: C-REACTIVE PROTEIN QUANT 15.2 mg/dL (0-0.5)
[2020-05-09 12:08] LABS: ERYTHROCYTE SEDIMENTATION RATE 67 MM/HR (0-20)
[2020-05-09 12:16] VITALS: BP_SYST 118
[2020-05-09] MEDS: NORMAL SALINE 5 ML DISP.SYRIN IVF SCH ×2 (14:00→22:20)
[2020-05-09 16:19] VITALS: BP_SYST 139
[2020-05-09] MEDS: cefTRIAXone 1 GM in D5W 50 ML IV SCH (17:00)
[2020-05-09 20:00] VITALS: BP_SYST 128
[2020-05-09] MEDS: SENNOSIDES 8.6 MG TABLET GT SCH (22:20)
[2020-05-10 00:35] VITALS: BP_SYST 130
[2020-05-10] MEDS: NORMAL SALINE 5 ML DISP.SYRIN IVF SCH ×3 (06:00→22:10)
[2020-05-10 07:47] LABS: BASOPHILS % (AUTO) 0.6 % (0.0-2.0); EOSINOPHILS # (AUTO) 0.5 K/uL (0.0-0.4); EOSINOPHILS % (AUTO) 7.4 % (0.0-4.0); HEMOGLOBIN 7.2 g/dL (12.0-16.0); LYMPHOCYTES # (AUTO) 2.5 K/uL (1.0-5.5); LYMPHOCYTES % (AUTO) 36.1 % (20.5-51.5); MEAN CORPUSCULAR HEMOGLOBIN 30 pg (27-31); MEAN CORPUSCULAR HGB CONC 34 % (32-36); MEAN CORPUSCULAR VOLUME 90 fL (79.0-98.0); MONOCYTES # (AUTO) 0.4 K/uL (0.0-1.0); MONOCYTES % (AUTO) 5.8 % (1.7-9.3); NEUTROPHILS # (AUTO) 3.4 K/uL (1.8-7.7); NEUTROPHILS % (AUTO) 50.1 % (40.0-70.0); PLATELET COUNT (AUTO) 319 K/uL (130-430); RED BLOOD CELL COUNT(AUTO) 2.38 MIL/uL (4.2-6.2); RED CELL DISTRIBUTION WIDTH 15.5 % (9.0-15.0); WHITE BLOOD COUNT (AUTO) 6.8 K/uL (4.8-10.8)
[2020-05-10 08:00] VITALS: BP_SYST 117
[2020-05-10 08:14] LABS: ALBUMIN 1.7 g/dL (3.4-4.8); CALCIUM 7.8 mg/dL (8.4-11.0); CREATININE 0.38 mg/dL (0.55-1.30); TOTAL BILIRUBIN 0.4 mg/dL (0.0-1.0)
[2020-05-10 08:22] LABS: HEMATOCRIT 21.4 % (36-48)
[2020-05-10] MEDS ORDERED: ROCPM1 IV (08:40)
[2020-05-10 09:26] LABS: ERYTHROCYTE SEDIMENTATION RATE 67 MM/HR (0-20)
[2020-05-10] MEDS: LANSOPRAZOLE 30 MG CAPSULE.DR GT SCH (09:35)
[2020-05-10] MEDS: MULTIVIT-MINERALS/FERROUS GLUC 15 ML UDC GT SCH (09:40)
[2020-05-10] MEDS ORDERED: POTASSIUM CHLORIDE 20 MEQ/PKT PACKET GT ONE (11:30)
[2020-05-10 12:00] VITALS: BP_SYST 121
[2020-05-10 13:13] VITALS: BP_SYST 117
[2020-05-10 16:00] VITALS: BP_SYST 123
[2020-05-10] MEDS: cefTRIAXone 1 GM in D5W 50 ML IV SCH (16:18)
[2020-05-10 20:00] VITALS: BP_SYST 102
[2020-05-10] MEDS: SENNOSIDES 8.6 MG TABLET GT SCH (22:10)
[2020-05-11] VITALS: BP_SYST 110
[2020-05-11] MEDS: NORMAL SALINE 5 ML DISP.SYRIN IVF SCH ×3 (05:45→22:00)
[2020-05-11 06:37] LABS: BASOPHILS % (AUTO) 0.4 % (0.0-2.0); EOSINOPHILS # (AUTO) 0.4 K/uL (0.0-0.4); EOSINOPHILS % (AUTO) 4.1 % (0.0-4.0); HEMATOCRIT 23.7 % (36-48); HEMOGLOBIN 8.1 g/dL (12.0-16.0); LYMPHOCYTES # (AUTO) 3.2 K/uL (1.0-5.5); LYMPHOCYTES % (AUTO) 31.6 % (20.5-51.5); MEAN CORPUSCULAR HEMOGLOBIN 31 pg (27-31); MEAN CORPUSCULAR HGB CONC 34 % (32-36); MEAN CORPUSCULAR VOLUME 90 fL (79.0-98.0); MONOCYTES # (AUTO) 0.6 K/uL (0.0-1.0); MONOCYTES % (AUTO) 6.1 % (1.7-9.3); NEUTROPHILS # (AUTO) 5.8 K/uL (1.8-7.7); NEUTROPHILS % (AUTO) 57.8 % (40.0-70.0); PLATELET COUNT (AUTO) 416 K/uL (130-430); RED BLOOD CELL COUNT(AUTO) 2.64 MIL/uL (4.2-6.2); RED CELL DISTRIBUTION WIDTH 15.7 % (9.0-15.0)
[2020-05-11 08:00] VITALS: BP_SYST 137
[2020-05-11 08:39] LABS: CALCIUM 8.8 mg/dL (8.4-11.0); CREATININE 0.56 mg/dL (0.55-1.30)
[2020-05-11] MEDS: MULTIVIT-MINERALS/FERROUS GLUC 15 ML UDC GT SCH ×2 (09:00→12:00)
[2020-05-11] MEDS: LANSOPRAZOLE 30 MG CAPSULE.DR GT SCH (09:52)
[2020-05-11 10:05] LABS: ERYTHROCYTE SEDIMENTATION RATE 73 MM/HR (0-20)
[2020-05-11 10:45] LABS: C-REACTIVE PROTEIN QUANT 9.1 mg/dL (0-0.5)
[2020-05-11] MEDS: LORazepam 2 MG/ML VIAL IVP PRN (11:40)
[2020-05-11 16:00] VITALS: BP_SYST 125
[2020-05-11] MEDS: cefTRIAXone 1 GM in D5W 50 ML IV SCH ×2 (16:38→17:46)
[2020-05-11] MEDS: HYDROcodone/ACETAMIN 10-325 MG TAB GT PRN (17:50)
[2020-05-11] MEDS: SENNOSIDES 8.6 MG TABLET GT SCH (21:45)
[2020-05-12] VITALS: BP_SYST 116
[2020-05-12] MEDS: NORMAL SALINE 5 ML DISP.SYRIN IVF SCH ×2 (06:00→13:36)
[2020-05-12 07:17] LABS: BASOPHILS % (AUTO) 0.5 % (0.0-2.0); EOSINOPHILS # (AUTO) 0.3 K/uL (0.0-0.4); EOSINOPHILS % (AUTO) 4.1 % (0.0-4.0); HEMATOCRIT 25.5 % (36-48); HEMOGLOBIN 8.6 g/dL (12.0-16.0); LYMPHOCYTES # (AUTO) 2.2 K/uL (1.0-5.5); LYMPHOCYTES % (AUTO) 27.3 % (20.5-51.5); MEAN CORPUSCULAR HEMOGLOBIN 31 pg (27-31); MEAN CORPUSCULAR HGB CONC 34 % (32-36); MEAN CORPUSCULAR VOLUME 91 fL (79.0-98.0); MONOCYTES # (AUTO) 0.4 K/uL (0.0-1.0); MONOCYTES % (AUTO) 5.2 % (1.7-9.3); NEUTROPHILS % (AUTO) 62.9 % (40.0-70.0); PLATELET COUNT (AUTO) 419 K/uL (130-430); RED BLOOD CELL COUNT(AUTO) 2.81 MIL/uL (4.2-6.2); RED CELL DISTRIBUTION WIDTH 15.7 % (9.0-15.0)
[2020-05-12 07:56] LABS: CALCIUM 8.4 mg/dL (8.4-11.0)
[2020-05-12 08:00] VITALS: BP_SYST 100
[2020-05-12 08:20] LABS: C-REACTIVE PROTEIN QUANT 3.9 mg/dL (0-0.5); CREATININE 0.56 mg/dL (0.55-1.30)
[2020-05-12] MEDS: LANSOPRAZOLE 30 MG CAPSULE.DR GT SCH (09:33)
[2020-05-12 12:00] VITALS: BP_SYST 163
[2020-05-12 12:05] LABS: ERYTHROCYTE SEDIMENTATION RATE 63 MM/HR (0-20)
[2020-05-12] MEDS: cefTRIAXone 1 GM in D5W 50 ML IV SCH (17:00)
[2020-05-12 17:19] VITALS: BP_SYST 103
== END 2020-05-12 19:00 | DRG 710 ==
LOC: SED 15:24 → STU 19:05
PROVIDERS: ADMIT Preventive Medicine Preventive Medicine/Occupational Environmental Medicine; ATTEND Preventive Medicine Preventive Medicine/Occupational Environmental Medicine
PROC: 02HV33Z Insertion of Infusion Device into Superior Vena Cava, Percutaneous Approach (ICD-10-PCS; 2020-05-07)
PROC: B548ZZA Ultrasonography of Superior Vena Cava, Guidance (ICD-10-PCS; 2020-05-07)
PROC: 07T50ZZ Resection of Right Axillary Lymphatic, Open Approach (ICD-10-PCS; 2020-05-08)
PROC: 0JX60ZZ Transfer Chest Subcutaneous Tissue and Fascia, Open Approach (ICD-10-PCS; 2020-05-08)
PROC: 0HTT0ZZ Resection of Right Breast, Open Approach (ICD-10-PCS; principal; 2020-05-08 07:30)
DX: A41.9 Sepsis, unspecified organism (principal); J18.9 Pneumonia, unspecified organism; J96.10 Chronic respiratory failure, unspecified whether with hypoxia or hypercapnia; G93.1 Anoxic brain damage, not elsewhere classified; R53.2 Functional quadriplegia; R13.10 Dysphagia, unspecified; D72.829 Elevated white blood cell count, unspecified; R73.9 Hyperglycemia, unspecified; E88.09 Other disorders of plasma-protein metabolism, not elsewhere classified; C50.911 Malignant neoplasm of unspecified site of right female breast; R59.1 Generalized enlarged lymph nodes; D64.9 Anemia, unspecified; E87.6 Hypokalemia; Z20.822 Contact with and (suspected) exposure to COVID-19; S21.001A Unspecified open wound of right breast, initial encounter; R47.01 Aphasia; E87.0 Hyperosmolality and hypernatremia; J44.0 Chronic obstructive pulmonary disease with (acute) lower respiratory infection; Z99.11 Dependence on respirator [ventilator] status; Z85.3 Personal history of malignant neoplasm of breast; Z93.1 Gastrostomy status; Z90.11 Acquired absence of right breast and nipple; Z88.8 Allergy status to other drugs, medicaments and biological substances; Z79.899 Other long term (current) drug therapy; Z86.74 Personal history of sudden cardiac arrest
CPT/HCPCS: 36415; 71045; 71260-TC; 76376; 80048; 80053; 81000-TC; 83605; 84484; 84702-TC; 85025; 85610-TC; 85651-TC; 85730-TC; 86140; 86886; 86900; 86901; 87040-TC; 87081; 88307; 88309; 93005; 94760; 96360; 96361; 99285; C1751; G0378; J0696; J1170; J1885; J2060; J2765; J3480; J7040; J7050; J7060; Q9967; U0003